=== PATIENT | male | born 1950 | race Caucasian/White ===

== ENCOUNTER 2021-09-29 09:09 | Emergency (ER) | payer MEDICARE, SELFPAY ==
[2021-09-29 09:14] VITALS: BP 141/78; PULSE 81; RESP 25; TEMP 36.6; O2SAT 94; BMI 28.2
[2021-09-29 09:28] VITALS: BP 141/78; PULSE 82; RESP 25; TEMP 36.6; O2SAT 97
--- NOTE | 2021-09-29 09:31 | XR_ITS ---
WS: [id number] Exam: XR chest 1V portable [id number] Date/Time of Exam: 09/29/2021 9:31 AM Reason For Exam: dyspnea/cough No priors. Patchy infiltrates are seen in the mid and lower right lung as well as the left lower lobe. Normal ca rdiomediastinal structures. No pleural effusions or pneumothorax. Regional bony elements appear griffin l. XR/XR chest 1V portable [id number] IMPRESSION: 1. Patchy infiltrates in the mid and lower right lung and left lower lobe most likely indicating active pneumonia.
--- NOTE | 2021-09-29 09:32 | ECG_ITS ---
[facility] Test Date: 2021-09-29 Pat Name: Naun Encinas Department: Room: Gender: Male Recycling Operator: : 1950 Requested By: Paul Damon Order Number: [id number] Sathya MD: Nuris Alvarado M.D. Measurements Intervals [place] Rate: 78 P: 49 LA: 168 QRS: -1 QRSD: 97 T: 5 QT: 357 QTc: 408 Interpretive Statements SINUS RHYTHM INFERIOR MYOCARDIAL INFARCTION , PROBABLY OLD [40+ ms Q WAVE AND/OR ST/T ABNORMALITY IN II/aVF] No previous ECG available for comparison Electronically Signed On 09-30-2021 12:41:38 ANCILLARY SERVICES MANAGER by Nuris Alvarado M.D. [id number]
--- NOTE | 2021-09-29 09:40 | ED_ITS ---
HPI - Weakness General: Chief complaint: Weakness Stated complaint: GENERALIZED WEAKNESS Time Seen by Provider: 09/29/21 09:16 History of Present Illness: HPI Narrative: 71-year-old male presents emergency room with complaint of generalized weakness. He lives at home his is his main caregiver she is having difficult time managing him. He has been evaluated cardiovascular ambulatory transfer anytime she has had difficulty with him going to the floor sitting at the edge of the bed and not being able to get him terminated for repositioning. Evidently the last couple days of excellent result reposition him and this morning contacted EMS because they were unable to get him out of bed. There is no reported fever no reported cough or chest pain no vomiting or diarrhea known dementia has been progressively worsening usually sees Dr. Chio LOCKHART Complaint: generalized weakness Onset (ago): day(s) Duration: constant Location: generalized Relieving factors: none Exacerbating factors: none Associated symptoms: Reports confusion (Chronic); Denies chest pain, chills, melena, decreased appetite, diaphoresis, dysuria, easy bruising, fever(s), headache(s), myalgias, nausea, rash, short of breath, syncope or vomiting Review of Systems Const: Denies: fever(s), chills or diaphoresis ENMT: Denies: throat pain, ear or mastoid pain, nasal discharge or nasal congestion Card: Denies: chest pain or syncope Resp: Denies: dyspnea, productive cough or non-productive cough GI: Denies: nausea, vomiting or melena : Denies: dysuria Skin/Breast: Denies: rash or pruritus Neuro: Reports: confusion (Chronic); Denies: headache(s) Jose Angel/Lymph: Denies: easy bruising Physical Exam Const: COMMON NORMALS: no acute distress GENERAL APPEARANCE: cooperative and comfortable ORIENTATION/CONSCIOUSNESS: Yes awake HENMT: COMMON NORMALS: normocephalic, atraumatic and hearing grossly normal bilaterally HEAD & SCALP: normocephalic and atraumatic Neck/C-Spine: COMMON NORMALS: no JVD Lymph: LYMPHATIC: no lymphadenopathy noted and no lymphedema noted Resp: COMMON NORMALS: normal respiratory effort, No retractions, No use of accessory muscles and clear to auscultation bilaterally AUSCULTATION: clear to auscultation bilaterally Cardio: COMMON NORMALS: no JVD, regular rate, regular rhythm and No murmurs present (Cardio) RATE: regular rate RHYTHM: regular rhythm GI: COMMON NORMALS: Soft to palpation and No hepatosplenomegaly present AU SCULTATION: Yes normoactive bowel sounds PALPATION: Yes Soft to palpation, No Tenderness to palpation present (GI), No Guarding due to palpation present (GI) and Yes No hepatosplenomegaly present Extremity: COMMON NORMALS: normal to inspection, capillary refill normal, no clubbing, cyanosis or edema, no calf tenderness and no pedal edema Skin: COMMON NORMALS: no rashes or lesions noted GENERAL SKIN EXAM: no rashes or lesions noted Course Vital Signs: Vital signs: Vital Signs Temperature 97.8 F 09/29/21 14:18 Pulse Rate 77 09/29/21 14:18 Respiratory Rate 25 H 09/29/21 14:18 Blood Pressure 118/69 09/29/21 14:18 Pulse Oximetry 92 09/29/21 14:18 MDM - Weakness MDM Narrative: Medical decision making narrative: Reviewed labs and imaging EKGs as well. Chest x-ray shows questionable pneumonia. Clinically is very stable. I think we can treat him as an outpatient we will start oral antibiotics however follow-up with his primary care doctor within 1 week. Lab Data: Labs: Lab Results 09/29/21 09/29/21 09/29/21 09:32 10:10 10:10 WBC 3.5 10^3/uL L 10^ 3/uL (4.0-10.0) RBC 4.60 10^6/uL 10^6 /uL (4.1-5.3) Hgb 14.3 g/dL g/dL (11.7-16.6) Hct 41.2 % L % (42.0-52.0) MCV 89.6 fl fl (80-94) MCH 31.1 pg pg (28.0-34.0) MCHC 34.7 g/dL g/dL (30.0-36.0) RDW 11.7 % L % (12.1-15.1) Plt Count 129 10^3/cmm L 10 ^3/cmm (130-400) MPV 9.7 fL fL (7.4-10.4) Neut % (Auto) 81.4 % % Lymph % (Auto) 11.3 % % [place] % (Auto) 7.0 % % Eos % (Auto) 0.0 % % Baso % (Auto) 0.0 % % Neut # (Auto) 2.81 10^3/uL 10^3 /uL (1.8-7.7) Lymph # (Auto) 0.4 10^3/uL L 10^ 3/uL (0.8-4.8) [place] # (Auto) 0.2 10^3/uL 10^3/ uL (0.2-0.9) Eos # (Auto) 0.0 10^3/uL 10^3/ uL (0.0-0.8) Baso # (Auto) 0.0 10^3/uL 10^3/ uL (0.0-0.1) Nucleated RBC % (a uto) 0 % % Nucleated RBCs # 0.0 /100WBC /100W BC Sodium 133 mmol/L L mmol /L (136-145) Potassium 4.2 mmol/L mmol/L (3.5-5.1) Chloride 95 mmol/L L mmol/ L (98-107) Carbon Dioxide 27 mmol/L mmol/L (22-29) Anion Gap 15.2 (5-19) BUN 17 mg/dL mg/dL (8-23) Creatinine 0.9 mg/dL mg/dL (0.7-1.2) GFR Calculation 83.7 mL/min L mL/ min (90-130) Glucose 287 mg/dL H mg/dL (65-115) Calculated Osmolal ity 288 mOsm/kg mOsm/ kg (285-295) Lactic Acid 1.4 mmol/L mmol/L (0.5-2.2) Calcium 8.5 mg/dL mg/dL (8.5-10.5) Total Bilirubin 0.4 mg/dL mg/dL (0.15-1.2) AST 32 U/L U/L (0-40) ALT 24 U/L U/L (0-41) Alkaline Phosphata se 72 IU/L IU/L (40-130) Creatine Kinase 103 U/L U/L (39-308) Troponin T Baselin e Troponin T 120 Min [place] Troponin T Total Protein 6.4 g/dL L g/dL (6.6-8.7) Albumin 3.5 g/dL g/dL (3.5-5.2) Globulin 2.9 g/dL g/dL (1.3-4.6) Urine Color Urine Appearance Urine pH Ur Specific Gravit y Urine Protein Urine Glucose (UA) Urine Ketones Urine Blood Urine Nitrate Urine Bilirubin Urine Urobilinogen Ur Leukocyte Charo [place]se Urine RBC Urine WBC Ur Squamous Epith Cells Amorphous Sediment Urine Bacteria 09/29/21 09/29/21 09/29/21 10:10 12:56 13:15 WBC RBC Hgb Hct MCV MCH MCHC RDW Plt Count MPV Neut % (Auto) Lymph % (Auto) [place] % (Auto) Eos % (Auto) Baso % (Auto) Neut # (Auto) Lymph # (Auto) [place] # (Auto) Eos # (Auto) Baso # (Auto) Nucleated RBC % (a uto) Nucleated RBCs # Sodium Potassium Chloride Carbon Dioxide Anion Gap BUN Creatinine GFR Calculation Glucose Calculated Osmolal ity Lactic Acid Calcium Total Bilirubin AST ALT Alkaline Phosphata se Creatine Kinase Troponin T Baselin e 7 ng/L ng/L (0-15) Troponin T 120 Min [place] 7.16 ng/L ng/L (0-15) Delta Troponin T 0.16 ABS# ABS# (0-10) Total Protein Albumin Globulin Urine Color Yellow (Yellow) Urine Appearance Clear (CLEAR) Urine pH 5 (5-7) Ur Specific Gravit y 1.025 (1.005-1.030) Urine Protein 2+ H (Negative) Urine Glucose (UA) 4+ H (Normal) Urine Ketones 1+ H (Negative) Urine Blood Neg (Negative) Urine Nitrate Negative (Negative) Urine Bilirubin Neg (Negative) Urine Urobilinogen Norm mg/dL mg/dL (Negative) Ur Leukocyte [place] Negative (Negative) Urine RBC None /hpf /hpf (0-2) Urine WBC None /hpf /hpf (0-5) Ur Squamous Epith Cells None /hpf /hpf (0-5) Amorphous Sediment Not Reportable Urine Bacteria None /hpf /hpf (NONE) Discharge Plan Discharge Patient Disposition: Home Clinical Impression: Pneumonia, Dementia Condition: Stable Prescriptions: New levofloxacin 500 mg tablet 500 mg PO DAILY 7 Days Qty: 7 RF: 0 No Action citalopram 40 mg tablet 40 mg PO BEDTIME RF: 0 trazodone 50 mg tablet 50 mg PO BEDTIME PRN (Reason: Sleep) RF: 0 Vitamin B-12 1,000 mcg Tablet 1,000 mcg PO BEDTIME RF: 0 tamsulosin 0.4 mg capsule 0.4 mg PO BEDTIME RF: 0 zinc 50 mg Tablet 50 mg PO DAILY RF: 0 risperidone 0.5 mg tablet See Rx Instructions .ROUTE .COMPLEX RF: 0 Vitamin C 500 mg Tablet Extended Release 1,000 mg PO DAILY RF: 0 Elderberry 200 mg Capsule 200 mg PO DAILY RF: 0 Lantus Solostar U-100 Insulin 100 unit/mL (3 mL) insulin pen 25 unit SUBCUT BEDTIME RF: 0 Vitamin D3 1 cap PO DAILY RF: 0 Discharge Orders: Discharge ED (Routine); Ordered 09/29/21 Ordered By: Paul Gordon Referrals: Nitish Barroso DO [Primary Care Provider] - Discharge Diet: Usual diet Discharge Activity: Resume usual activity Patient Instructions: Opioid Safety Activity Restrictions/Additional Instructions: Follow-up with your primary care doctor within the week. Recommend considering alternative levels of care. Coding Level of Care Code ED Clerical Office for Winsome Fwes[facility] Exam Comprehensive
--- NOTE | 2021-09-29 09:53 | PC.PHAR ---
pts verified pts medications and brought in some of the medications
[2021-09-29 10:41] LABS: Alanine Aminotransferase 24 U/L (0-41); Albumin Level 3.5 g/dL (3.5-5.2); Alkaline Phosphatase 72 IU/L (40-130); Anion Gap 15.2 (5-19); Aspartate Amino Transferase 32 U/L (0-40); Blood Urea Nitrogen 17 mg/dL (8-23); Calcium 8.5 mg/dL (8.5-10.5); Carbon Dioxide 27 mmol/L (22-29); Chloride 95 mmol/L (98-107); Creatine Phosphokinase 103 U/L (39-308); Globulin 2.9 g/dL (1.3-4.6); Glomerular Filtration Rate 83.7 mL/min (90-130); Glucose 287 mg/dL (65-115); Osmolality Calculated 288 mOsm/kg (285-295); Potassium 4.2 mmol/L (3.5-5.1); Sodium 133 mmol/L (136-145); Total Bilirubin 0.4 mg/dL (0.15-1.2); Total Protein 6.4 g/dL (6.6-8.7)
[2021-09-29 10:42] LABS: Lactic Sepsis W/Reflex 1.4 mmol/L (0.5-2.2); Troponin(5th) Baseline 7 ng/L (0-15)
[2021-09-29] MEDS: ondansetron 2 mg/ML SDV 2 mL 4 MG IVP (11:10)
[2021-09-29] MEDS: azithromycin 500 MG in sodium chloride 0.9% 250 ML 250 MG IV (11:11)
--- NOTE | 2021-09-29 11:32 | ECG_ITS ---
[facility] Test Date: 2021-09-29 Pat Name: Naun Encinas Department: Room: Gender: Male Legal Executive: : 1950 Requested By: Paul Damon Order Number: [id number] Sathya MD: Nuris Alvarado M.D. Measurements Intervals [place] Rate: 79 P: 61 AR: 179 QRS: 15 QRSD: 97 T: 28 QT: 377 QTc: 433 Interpretive Statements SINUS RHYTHM Compared to ECG 09/29/2021 10:35:08 Myocardial infarct finding no longer present Electronically Signed On 09-30-2021 12:58:55 HOLIDAY DETECTOR OPERATOR by Nuris Alvarado M.D. [id number]
[2021-09-29 11:59] VITALS: BP 123/74; PULSE 80; RESP 25; O2SAT 97
[2021-09-29] MEDS: cefTRIAXone 1,000 MG in sodium chloride 0.9% (plus) 50 ML 100 MG IV (12:23)
[2021-09-29 12:45] LABS: Hematocrit 41.2 % (42.0-52.0); Hemoglobin 14.3 g/dL (11.7-16.6); Lymphocytes # 0.4 10^3/uL (0.8-4.8); Lymphocytes % 11.3 %; Mean Corpuscular HGB Conc 34.7 g/dL (30.0-36.0); Mean Corpuscular Hemoglobin 31.1 pg (28.0-34.0); Mean Corpuscular Volume 89.6 fl (80-94); Mean Platelet Volume 9.7 fL (7.4-10.4); Monocytes # 0.2 10^3/uL (0.2-0.9); Neutrophils # 2.81 10^3/uL (1.8-7.7); Neutrophils % 81.4 %; Nucleated Red Blood Cells % 0 %; Platelet Count 129 10^3/cmm (130-400); Red Cell Distribution Width 11.7 % (12.1-15.1); White Blood Count 3.5 10^3/uL (4.0-10.0)
[2021-09-29 12:54] VITALS: PULSE 76; RESP 20; O2SAT 98
[2021-09-29 13:17] VITALS: BP 133/75; PULSE 75; RESP 25; O2SAT 97
[2021-09-29 13:25] LABS: Troponin 5 2HR 7.16 ng/L (0-15); Troponin 5 2HR Delta 0.16 ABS# (0-10)
[2021-09-29 13:40] LABS: Urine Appearance Clear (CLEAR); Urine Color Yellow (Yellow); pH Urine 5 (5-7)
[2021-09-29 13:41] LABS: Add Urine Microscopic? YES; Bilirubin Urine Neg (Negative); Blood Urine Neg (Negative); Glucose Urine UA 4+ (Normal); Ketones Urine 1+ (Negative); Leukocyte Esterase Urine Negative (Negative); Nitrate Urine Negative (Negative); Protein Urine 2+ (Negative); Specific Gravity, Urine 1.025 (1.005-1.030); Urobilinogen Urine Norm (Negative)
[2021-09-29 13:43] LABS: Add Urine Culture? No
[2021-09-29 14:18] VITALS: BP 118/69; PULSE 77; RESP 25; TEMP 36.6; O2SAT 92
== END 2021-09-29 14:20 | disposition home or self-care (01) ==
PROVIDERS: Emergency Provider Family Medicine; PCP Internal Medicine
DX: J18.9 Pneumonia, unspecified organism (principal); F03.90 Unspecified dementia, unspecified severity, without behavioral disturbance, psychotic disturbance, mood disturbance, and anxiety; Z79.4 Long term (current) use of insulin
CPT/HCPCS: 36415; 71045; 80053; 81001; 82550; 83605; 84484; 85025; 87040; 93005; 96365; 96367; 96375; 99284; J0456; J0696; J2405; J7050